=== PATIENT | male | born 1965 | race Caucasian/White ===

== ENCOUNTER 2016-12-13 06:31 | Emergency (ER) | payer OTHER ==
--- NOTE | 2016-12-13 08:53 | DIAGNOSTIC IMAGING REPORT ---
PROCEDURE: XR CHEST 1 VIEW INDICATION: SHORTNESS OF BREATH TECHNIQUE: Portable AP view (0720 hours). COMPARISON: None. FINDINGS: Allowing for suboptimal inspiration, lungs are clear. Heart and mediastinum are normal. Thorax is normal. IMPRESSION: 1. Negative chest.
--- NOTE | 2016-12-13 10:20 | ED CLINICAL REPORT ---
Clinical Report - Physicians/Mid Levels [facility] [address] [place] [address] 12/13/2016 6:33 Patient: PAUL LUEVANO Time Seen: 06:51. Arrived- By private vehicle. Historian- patient. HISTORY OF PRESENT ILLNESS Chief Complaint: CHEST PAIN. At its maximum, severity described as moderate. When seen in the E.D., severity described as moderate. Modifying factors- worsened by movement. Not relieved by anything. This started today and is still present. Onset during rest. It is described as sharp and "pain" and it is described as located in the right chest area. No nausea or vomiting. He has had difficulty breathing (hurts to take a deep breath). He has experienced diaphoresis. Similar symptoms previously: None. Recent medical care: Not recently seen/assessed. REVIEW OF SYSTEMS No fever, chills, cough, pedal edema or calf pain. No fainting episodes, headache, sore throat, blurred vision or abdominal pain. No black stools, difficulty with urination, skin rash, enlarged lymph nodes or joint pain. No bloody stools. All systems otherwise negative, except as recorded above. PAST HISTORY Problems: no known problems. Additional Surgeries: Knee Surgery. Medications: None. Allergies: Doxycycline. SOCIAL HISTORY Never smoker. No alcohol use or drug use. ADDITIONAL NOTES The nursing notes have been reviewed. PHYSICAL EXAM Vital Signs: 12/13/2016 06:36 BP: 129/95. HR: 48. RR: 22. O2 saturation: 100%. Temp: 97.7 F. Have been reviewed. Appearance: Alert. Patient in moderate distress. (PT is crying out, clutching his chest, and hyperventilating.). Distress appears due to anxiety. Eyes: Pupils equal, round and reactive to light. Eyes normal inspection. ENT: Nose normal. Neck: Normal inspection. CVS: Normal heart rate and rhythm. Heart sounds normal. Pulses normal. Respiratory: No respiratory distress. Chest pain reproducible with palpation of the anterior chest wall, with movement of the right arm and with deep breathing. Breath sounds normal. Abdomen: Soft and nontender. Back: Normal external inspection. Skin: Skin warm and dry. Normal skin color. No rash. Normal skin turgor. Extremities: Extremities exhibit normal ROM. No lower extremity edema. Neuro: Oriented X 3. No motor deficit. No sensory deficit. LABS, X-RAYS, AND EKG EKG: EKG time: (0639). No acute process. No acute ischemia. Normal sinus rhythm. Normal P waves. Normal LAYLA. Normal QRS complex. Normal axis. Normal ST and T waves, QT and QTc. Prior EKG unavailable. The study has been interpreted contemporaneously by me. The study has been independently viewed by me. The EKG appears to be a good tracing. Rhythm Strip #1: Time: (0634). Rate= 55. Normal sinus rhythm. Regular rhythm. Narrow QRS complexes. No ectopy. Conduction normal. Normal ST segments and T waves. The study was interpreted by me. Chest X-ray: No acute disease. Normal lung markings present. Normal heart size. Mediastinum normal. Great vessels normal. Soft tissues normal. No infiltrate. No fracture. No bony lesion present. Views: AP (portable). Technique: good. The X-rays were independently viewed by me, interpreted by the radiologist and contemporaneously by me and discussed with the radiologist. Prior films were not available for comparison. Abdominal Sonogram: Multiple gallstones are present. Common duct is normal. Normal liver. Pancreas normal. No free fluid. The study was independently viewed by me, interpreted by the radiologist and discussed with the radiologist. Study included the gallbladder and upper abdomen. Prior studies were not available for comparison. Laboratory Tests: CBC w Diff: (ARISTEO: 12/13/2016 06:40) ( MsgRcvd 12/13/2016 07:15) Final results Test Result Flag Units (Reference) WHITE BLOOD COUNT 7.6 K/uL (4.5-11.5) RED BLOOD COUNT 5.63 M/uL (4.50-5.90) HEMOGLOBIN 16.0 gm/dL (13.5-17.5) HEMATOCRIT 47.9 % (41.0-53.0) MEAN CELL VOLUME 85 fL (80-100) MEAN CORPUSCULAR HGB 28 pg (26-34) MEAN CORPUSCULAR HGB CONC 33 g/dL (31-37) RED CELL DISTRIBUTION WIDTH 13.5 % (11.6-14.8) PLATELET COUNT 274 K/uL (150-400) NEUTROPHIL % 54.3 % (50-75) LYMPH % 28.1 % (25-40) MONO % 9.3 % (3-14) EOSINOPHIL % 7.5 H % (0-4) BASOPHIL % 0.8 % (0-2) PT with INR: (ARISTEO: 12/13/2016 06:40) ( [facility] 12/13/2016 07:22) Final results Test Result Flag Units (Reference) INR 1.0 (0.8-1.2) Low Intensity Therapy: INR 1.5-2.0 PT range 18.5-23.1Mod.Intensity Therapy: INR 2.0-3.0 PT range 23.1-31.5High Intensity Therapy: INR 2.5-3.5 PT range 27.4-35.5High Intensity Therapy 2: INR 3.0-4.0 PT range 31.5-39.3 D-DIMER QUANTITATIVE 0.37 ug/mLFEU (0.27-0.52) The primary value of this quantitative assay relates toits negative predictive value (i.e. exclusion) of pulmonaryembolism/deep vein thrombosis/DIC.Elevated levels of d-dimer may also occur with:, age, cancer, inflammation, liver disease,post-op, infection, hematoma, coronary disease, peripheralarteriopathy, bleeding disorders and thrombolytic treatment.Results should be correlated with other clinical andradiological data.Testing Methodology: Latex Immunoassay Lipase: (ARISTEO: 12/13/2016 06:40) ( [facility] 12/13/2016 07:19) Final results Test Result Flag Units (Reference) LIPASE 225 U/L (73-393) CHEM 13 PANEL: (ARISTEO: 12/13/2016 06:40) ( [facility] 12/13[facility] 07:27) Final results Test Result Flag Units (Reference) GLUCOSE 102 mg/dL (70-110) BUN 22 H mg/dL (7-18) CREATININE 1.0 mg/dL (0.6-1.3) Estimated GFR >60 mL/min Estimated GFR- >60 mL/min Note: Persistent reduction over 3 months in eGFR<60 mL/min/1.73 m2 defines CKD. Patients with eGFR values>=60 mL/min/1.73 m2 may also have CKD if evidence ofpersistent proteinuria. Additional information may be foundat [email or web address].org. SODIUM 145 mmol/L (136-145) POTASSIUM 3.9 mmol/L (3.5-5.1) CHLORIDE 107 mmol/L (98-107) CARBON DIOXIDE 27 mmol/L (21-32) CALCIUM 9.3 mg/dL (8.5-10.1) TOTAL PROTEIN 7.3 g/dL (6.4-8.2) ALBUMIN 3.9 g/dL (3.3-5.0) BILIRUBIN, TOTAL 0.5 mg/dL (0.0-1.0) ALKALINE PHOSPHATASE 96 U/L (46-116) AST (SGOT) 23 U/L (15-37) ALT (SGPT) 38 U/L (12-78) CPK 217 U/L (24-260) MAGNESIUM 2.0 mg/dL (1.8-2.4) TROPONIN I <0.05 ng/mL (0.00-1.5) TROPONIN REFERENCE RANGE:<0.1 NEGATIVE0.1-1.5 INDETERMINANT>1.5 POSITIVE . Pulse Oximetry: 12/13/2016 06:36 O2 saturation: 100%. (FIO2 - room air). Interpretation: normal. PROGRESS AND PROCEDURES Course of Care: Pt was treated with IV fluids, Dilaudid and Toradol, with complete relief of sx. He was worked up thoroughly for his R-sided CP, and found to have a gallbladder full of stones. I did d/w pt that, as he has obviously had these stones for some time, but never had an episode of biliary colic before, that he will need to decide whether to seek surgical removal of his GB or not. I have given him the contact info for the surgery clinic, should he choose to follow up. No other acute issues identified. No emergent condition identified. Patient and spouse counseled in person regarding the patient's stable condition, test results, diagnosis and need for follow-up. Concerns were addressed. Old medical records reviewed. Disposition: Discharged. Condition: stable and improved. CLINICAL IMPRESSION Chest pain. Gallbladder disease with multiple gallstones; acute biliary colic. No gallstone in the bile duct, obstruction, cholecystitis or cholangitis. INSTRUCTIONS (Your ultrasound shows multiple gallstones, but no inflammation of your gall bladder.). Warnings: GENERAL WARNINGS: Return or contact your physician immediately if your condition worsens or changes unexpectedly, if not improving as expected, or if other problems arise. Prescription Medications: Hydrocodone/APAP 5mg / 325mg: take 1-2 orally every 6 hours as needed for pain. Dispense twelve (12). No refill. Zofran (orally disintegrating tablets) 4 mg: take 1-2 orally every 6 hours as needed for nausea. Dispense fifteen (15). No refill. Substitution is permissible. Understanding of the discharge instructions verbalized by patient. Follow-up with: Lucas Wakefield MD, General Surgeon, , [facility], [address] [place] [address] Follow up. Call for the next available appointment. (Electronically signed by Saima Felix MD 12/17/2016 22:13)
--- NOTE | 2016-12-13 10:20 | ED CLINICAL REPORT ---
Clinical Report - Physicians/Mid Levels [facility] [address] [place] [address] 12/13/2016 6:33 Patient: PAUL LUEVANO Time Seen: 06:51. Arrived- By private vehicle. Historian- patient. HISTORY OF PRESENT ILLNESS Chief Complaint: CHEST PAIN. At its maximum, severity described as moderate. When seen in the E.D., severity described as moderate. Modifying factors- worsened by movement. Not relieved by anything. This started today and is still present. Onset during rest. It is described as sharp and "pain" and it is described as located in the right chest area. No nausea or vomiting. He has had difficulty breathing (hurts to take a deep breath). He has experienced diaphoresis. Similar symptoms previously: None. Recent medical care: Not recently seen/assessed. REVIEW OF SYSTEMS No fever, chills, cough, pedal edema or calf pain. No fainting episodes, headache, sore throat, blurred vision or abdominal pain. No black stools, difficulty with urination, skin rash, enlarged lymph nodes or joint pain. No bloody stools. All systems otherwise negative, except as recorded above. PAST HISTORY Problems: no known problems. Additional Surgeries: Knee Surgery. Medications: None. Allergies: Doxycycline. SOCIAL HISTORY Never smoker. No alcohol use or drug use. ADDITIONAL NOTES The nursing notes have been reviewed. PHYSICAL EXAM Vital Signs: 12/13/2016 06:36 BP: 129/95. HR: 48. RR: 22. O2 saturation: 100%. Temp: 97.7 F. Have been reviewed. Appearance: Alert. Patient in moderate distress. (PT is crying out, clutching his chest, and hyperventilating.). Distress appears due to anxiety. Eyes: Pupils equal, round and reactive to light. Eyes normal inspection. ENT: Nose normal. Neck: Normal inspection. CVS: Normal heart rate and rhythm. Heart sounds normal. Pulses normal. Respiratory: No respiratory distress. Chest pain reproducible with palpation of the anterior chest wall, with movement of the right arm and with deep breathing. Breath sounds normal. Abdomen: Soft and nontender. Back: Normal external inspection. Skin: Skin warm and dry. Normal skin color. No rash. Normal skin turgor. Extremities: Extremities exhibit normal ROM. No lower extremity edema. Neuro: Oriented X 3. No motor deficit. No sensory deficit. LABS, X-RAYS, AND EKG EKG: EKG time: (0639). No acute process. No acute ischemia. Normal sinus rhythm. Normal P waves. Normal LAYLA. Normal QRS complex. Normal axis. Normal ST and T waves, QT and QTc. Prior EKG unavailable. The study has been interpreted contemporaneously by me. The study has been independently viewed by me. The EKG appears to be a good tracing. Rhythm Strip #1: Time: (0634). Rate= 55. Normal sinus rhythm. Regular rhythm. Narrow QRS complexes. No ectopy. Conduction normal. Normal ST segments and T waves. The study was interpreted by me. Chest X-ray: No acute disease. Normal lung markings present. Normal heart size. Mediastinum normal. Great vessels normal. Soft tissues normal. No infiltrate. No fracture. No bony lesion present. Views: AP (portable). Technique: good. The X-rays were independently viewed by me, interpreted by the radiologist and contemporaneously by me and discussed with the radiologist. Prior films were not available for comparison. Abdominal Sonogram: Multiple gallstones are present. Common duct is normal. Normal liver. Pancreas normal. No free fluid. The study was independently viewed by me, interpreted by the radiologist and discussed with the radiologist. Study included the gallbladder and upper abdomen. Prior studies were not available for comparison. Laboratory Tests: CBC w Diff: (ARISTEO: 12/13/2016 06:40) ( MsgRcvd 12/13/2016 07:15) Final results Test Result Flag Units (Reference) WHITE BLOOD COUNT 7.6 K/uL (4.5-11.5) RED BLOOD COUNT 5.63 M/uL (4.50-5.90) HEMOGLOBIN 16.0 gm/dL (13.5-17.5) HEMATOCRIT 47.9 % (41.0-53.0) MEAN CELL VOLUME 85 fL (80-100) MEAN CORPUSCULAR HGB 28 pg (26-34) MEAN CORPUSCULAR HGB CONC 33 g/dL (31-37) RED CELL DISTRIBUTION WIDTH 13.5 % (11.6-14.8) PLATELET COUNT 274 K/uL (150-400) NEUTROPHIL % 54.3 % (50-75) LYMPH % 28.1 % (25-40) MONO % 9.3 % (3-14) EOSINOPHIL % 7.5 H % (0-4) BASOPHIL % 0.8 % (0-2) PT with INR: (ARISTEO: 12/13/2016 06:40) ( [facility] 12/13/2016 07:22) Final results Test Result Flag Units (Reference) INR 1.0 (0.8-1.2) Low Intensity Therapy: INR 1.5-2.0 PT range 18.5-23.1Mod.Intensity Therapy: INR 2.0-3.0 PT range 23.1-31.5High Intensity Therapy: INR 2.5-3.5 PT range 27.4-35.5High Intensity Therapy 2: INR 3.0-4.0 PT range 31.5-39.3 D-DIMER QUANTITATIVE 0.37 ug/mLFEU (0.27-0.52) The primary value of this quantitative assay relates toits negative predictive value (i.e. exclusion) of pulmonaryembolism/deep vein thrombosis/DIC.Elevated levels of d-dimer may also occur with:, age, cancer, inflammation, liver disease,post-op, infection, hematoma, coronary disease, peripheralarteriopathy, bleeding disorders and thrombolytic treatment.Results should be correlated with other clinical andradiological data.Testing Methodology: Latex Immunoassay Lipase: (ARISTEO: 12/13/2016 06:40) ( [facility] 12/13/2016 07:19) Final results Test Result Flag Units (Reference) LIPASE 225 U/L (73-393) CHEM 13 PANEL: (ARISTEO: 12/13/2016 06:40) ( [facility]) Final results Test Result Flag Units (Reference) GLUCOSE 102 mg/dL (70-110) BUN 22 H mg/dL (7-18) CREATININE 1.0 mg/dL (0.6-1.3) Estimated GFR >60 mL/min Estimated GFR- >60 mL/min Note: Persistent reduction over 3 months in eGFR<60 mL/min/1.73 m2 defines CKD. Patients with eGFR values>=60 mL/min/1.73 m2 may also have CKD if evidence ofpersistent proteinuria. Additional information may be foundat [email or web address]. SODIUM 145 mmol/L (136-145) POTASSIUM 3.9 mmol/L (3.5-5.1) CHLORIDE 107 mmol/L (98-107) CARBON DIOXIDE 27 mmol/L (21-32) CALCIUM 9.3 mg/dL (8.5-10.1) TOTAL PROTEIN 7.3 g/dL (6.4-8.2) ALBUMIN 3.9 g/dL (3.3-5.0) BILIRUBIN, TOTAL 0.5 mg/dL (0.0-1.0) ALKALINE PHOSPHATASE 96 U/L (46-116) AST (SGOT) 23 U/L (15-37) ALT (SGPT) 38 U/L (12-78) CPK 217 U/L (24-260) MAGNESIUM 2.0 mg/dL (1.8-2.4) TROPONIN I <0.05 ng/mL (0.00-1.5) TROPONIN REFERENCE RANGE:<0.1 NEGATIVE0.1-1.5 INDETERMINANT>1.5 POSITIVE . Pulse Oximetry: 12/13/2016 06:36 O2 saturation: 100%. (FIO2 - room air). Interpretation: normal. PROGRESS AND PROCEDURES Course of Care: Pt was treated with IV fluids, Dilaudid and Toradol, with complete relief of sx. He was worked up thoroughly for his R-sided CP, and found to have a gallbladder full of stones. I did d/w pt that, as he has obviously had these stones for some time, but never had an episode of biliary colic before, that he will need to decide whether to seek surgical removal of his GB or not. I have given him the contact info for the surgery clinic, should he choose to follow up. No other acute issues identified. No emergent condition identified. Patient and spouse counseled in person regarding the patient's stable condition, test results, diagnosis and need for follow-up. Concerns were addressed. Old medical records reviewed. Disposition: Discharged. Condition: stable and improved. CLINICAL IMPRESSION Chest pain. Gallbladder disease with multiple gallstones; acute biliary colic. No gallstone in the bile duct, obstruction, cholecystitis or cholangitis. INSTRUCTIONS (Your ultrasound shows multiple gallstones, but no inflammation of your gall bladder.). Warnings: GENERAL WARNINGS: Return or contact your physician immediately if your condition worsens or changes unexpectedly, if not improving as expected, or if other problems arise. Prescription Medications: Hydrocodone/APAP 5mg / 325mg: take 1-2 orally every 6 hours as needed for pain. Dispense twelve (12). No refill. Zofran (orally disintegrating tablets) 4 mg: take 1-2 orally every 6 hours as needed for nausea. Dispense fifteen (15). No refill. Substitution is permissible. Understanding of the discharge instructions verbalized by patient. Follow-up with: Lucas Wakefield MD, General Surgeon, , [facility], [address] [place] [address] Follow up. Call for the next available appointment. (Electronically signed by Saima Felix MD 12/17/2016 22:13)
--- NOTE | 2016-12-13 10:21 | ED ORDER SUMMARY ---
..... Patient: PAUL LUEVANO OrderSheet [facility] VisitID: [id number] [address] [place] [address] 51y, M Registration Date/Time: 12/13/2016 ORDER SHEET Weight: 92.9 kg (stated) Allergies: Doxycycline GENERAL ORDERS: Chest 1V Urgent (07:03 12/13/2016 Kain MELÉNDEZ) (Ack 7:19 CHategekimana) (7:25 LMuller) Swimming Coach Or Instructor (Continuous) (07:12/13/2016 Kain MELÉNDEZ) (7:27 LWjocy R.N.) Cardiac Panel Stat (07:12/13/2016 Kain MELÉNDEZ) (7:05 Krista R.N.) PT with INR Urgent (07:12/13/2016 Kain MELÉNDEZ) (7:05 Krista R.N.) D-Dimer Urgent (07:12/13/2016 Kain MELÉNDEZ) (7:05 Krista R.N.) Lipase Urgent (07:12/13/2016 Kain MELÉNDEZ) (7:05 Krista R.N.) Oxygen (2 L/min) (NC) (07:05 12/13/2016 Kain MELÉNDEZ) (7:27 Keron R.N.) Pulse oximeter (07:12/13/2016 Kain MELÉNDEZ) (7:05 Krista R.N.) EKG - ER Stat (07:12/13/2016 Kain MELÉNDEZ) (7:05 Krista R.N.) US Abdomen Limited (Yes) Urgent (07:32 12/13/2016 Kain MELÉNDEZ) (Ack 7:40 LMuller) (9:38 LMuller) MEDICATION ORDERS: IV FLUIDS: IV NS : initial bolus 1000 mL (1000 mL/hr), then none - (NOW) (07:04 12/13/2016 Kain MELÉNDEZ) (7:26 LWhalgonzales R.N.) Dilaudid IV 2 mg (HIGH ALERT MEDICATION, NOW) (07:04 12/13/2016 Kain MELÉNDEZ) (7:27 LWjocy R.N.) Toradol IV 30 mg (NOW) (07:12/13/2016 Kain MELÉNDEZ) (7:27 Keron Still) ORDER SHEET NOTES: [Electronically signed by Jennifer Canela R.N. (17:05 12/13/2016)] [Electronically signed by Saima Felix MD (22:13 12/17/2016)] [Electronically locked/signed by Jennifer Canela R.N. (17:05 12/13/2016)]
--- NOTE | 2016-12-13 10:21 | ED NURSING NOTES ---
Clinical Report - Nurses [facility] [address] [place] [address] 12/13/2016 6:33 Patient: PAUL LUEVANO TRIAGE Triage time 0636. Acuity: LEVEL 2. Chief Complaint: CHEST PAIN and DISCOMFORT and BACK PAIN and SHORTNESS OF BREATH. --06:39 Xavi Wagner R.N. 06:36 12/13/16. BP: 129/95. HR: 48. RR: 22. O2 saturation: 100%. Temp: 97.7 F. Pain level now 06/17. --06:39 Xavi Wagner R.N. Weight: 92.9 kg stated. Height/Length: 70 inches Per Patient. BMI: 29.4. --06:38 Xavi Wagner R.N. Medications None. --06:37 Xavi Wagner R.N. Allergies Doxycycline. --06:37 Xavi Wagner R.N. History Arrived by private vehicle. Historian: patient. Accompanied by spouse. Onset. (about 2 hours ago). 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 FALL RISK ASSESSMENT: Fall risk assessment completed. No fall risk identified. NUTRITIONAL RISK ASSESSMENT: The nutritional risk assessment revealed no deficiencies. FUNCTIONAL ASSESSMENT: Functional assessment: no impairments noted. LEARNING NEEDS ASSESSMENT: The learning needs assessment revealed no barriers. SKIN INTEGRITY ASSESSMENT: Skin integrity risk assessment completed. No skin integrity risk identified. --06:39 Xavi Wagner R.N. ( pt states he thought he pulled a muscle in his chest but it is on the right side under his nipple area radiating to his back. pt states as the pain is worsening he is having difficulty breathing. RA sat is 100%). --06:40 Xavi Wagner R.N. ADDITIONAL SURGERIES: Knee Surgery. --06:38 Xavi Wagner R.N. Interventions ID band on patient. --06:39 Xavi Wagner R.N. PHYSICAL ASSESSMENT GENERAL / NEURO / PSYCH: Alert. Oriented X 4. Appears in pain and in distress. HEENT: Mucous membranes are pink. RESPIRATORY: Respirations not labored. Breath sounds within normal limits. CVS: Heart sounds within normal limits. Pulses within normal limits. Capillary refill less than 2 seconds. GI / : Abdomen soft and nontender. EXTREMITIES: No lower extremity edema. SKIN: Skin is warm and dry. Normal skin turgor. Skin is non-tender. --06:41 Xavi Wagner R.N. Ambulatory to room. Patient gowned. --06:41 Xavi Wagner R.N. NURSING PROGRESS NOTES Patient gowned. Head of bed elevated. Reassurance given. Patient identifiers checked. Call light placed in reach. Bed placed in lowest position. Brakes of bed on. --06:41 Xavi Wagner R.N. 06:41 12/13/2016 Site #1 started via IV in the left antecubital space with an 18g angiocath; one attempt. Blood drawn: rainbow set. Labeled in the presence of the patient and sent to the lab. Saline lock flushed with saline. --06:41 Xavi Wagner R.N. EKG time: (0639). EKG was ordered, performed by a tech and shown to the ED physician. --06:49 Benny Dejesus ER Concert Manager 07:12 12/13/16. ( Report received on patient from night RN.). --09:13 Jennifer Canela R.N. 07:16 12/13/2016 Started bag #1 1000 mL IV Fluids IV NS (Saline); at 1000 mL/hr over 1 hour(s) via site #1 via dial-a-flow. Allergies verified and confirmed 5 rights. IV patency established. IV site checked: no pain, redness, or swelling. IV flushed thoroughly pre- and post-medication administration. --07:26 Jennifer Canela R.N. 07:22 12/13/2016 Dilaudid (HYDROmorphone HCl PF) IVP 2 mg given over 2 minute(s) via site #1. 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 IV patency established. IV site checked: no pain, redness, or swelling. IV flushed thoroughly pre- and post-medication administration. --07:27 Jennifer Canela R.N. 07:27 12/13/2016 Toradol IVP 30 mg given over 2 minute(s) via site #1. Allergies verified and confirmed 5 rights. IV patency established. IV site checked: no pain, redness, or swelling. IV flushed thoroughly pre- and post-medication administration. --07:27 Jennifer Canela R.N. 08:55 12/13/16. BP: 106/68. HR: 51. RR: 10. O2 saturation: 98% on nasal cannula at 2 liters/minute. 08:40 12/13/16. BP: 103/69. HR: 52. RR: 10. O2 saturation: 97% on nasal cannula at 2 liters/minute. Additional comments: pt resting soundly . 08:25 12/13/16. BP: 108/69. HR: 51. RR: 10. O2 saturation: 98% on nasal cannula at 2 liters/minute. 08:10 12/13/16. BP: 116/75. HR: 50. RR: 11. O2 saturation: 97% on nasal cannula at 2 liters/minute. 07:55 12/13/16. BP: 117/75. HR: 54. RR: 15. O2 saturation: 99%. Additional comments: patient resting soundly . 07:40 12/13/16. BP: 119/79. HR: 52. RR: 14. O2 saturation: 100% on nasal cannula at 2 liters/minute. 07:30 12/13/16. BP: 109/89. HR: 55. RR: 18. O2 saturation: 100% on nasal cannula at 2 liters/minute. 07:15 12/13/16. BP: 140/103. HR: 50. RR: 19. O2 saturation: 100% on nasal cannula at 2 liters/minute. Temp: 98.6 F. Pain level now: 06/17. --09:22 Jennifer Canela R.N. 09:23 12/13/2016 IV Fluids IV NS Discontinued: bag #1 infused. Total amount infused: 1000 mL. IV patency established. IV site checked: no pain, redness, or swelling. IV flushed thoroughly. --09:23 Jennifer Canela R.N. ( Currently waiting for US.). --09:23 Jennifer Canela R.N. ( US IN ROOM WITH PATIENT). --09:41 Vijaya Dorsey 09:50 12/13/16. BP: 121/71. HR: 59. RR: 14. O2 saturation: 99%. Temp: 98.7 F. Pain level now: 0/10. 09:25 12/13/16. BP: 99/74. HR: 58. RR: 17. O2 saturation: 100% on nasal cannula at 2 liters/minute. --10:50 Jennifer Canela R.N. DISPOSITION / DISCHARGE Departure time: 10:53 Dec 13 2016. Condition at departure: improved. No learning barriers present. Discharge instructions provided and reviewed with the patient and spouse. Reviewed warnings. Reviewed medication(s). Treatments reviewed. Reviewed referrals. Patient verbalized understanding. Written instructions provided in Greenlandic. The patient was discharged home and accompanied by spouse. He left the Emergency Department ambulatory and via private vehicle. Spouse driving. --10:53 Jennifer Canela R.N. 10:50 12/13/16. BP: 103/60. HR: 58. RR: 14. O2 saturation: 99%. Temp: 98.4 F. Pain level now 0/10. --10:53 Jennifer Canela R.N. Locked/Released at 12/13/2016 17:05 by Jennifer Canela R.N.
--- NOTE | 2016-12-13 10:21 | ED ORDER SUMMARY ---
..... Patient: PAUL LUEVANO OrderSheet [facility] VisitID: [id number] [address] [place] [address] 51y, M Registration Date/Time: 12/13/2016 ORDER SHEET Weight: 92.9 kg (stated) Allergies: Doxycycline GENERAL ORDERS: Chest 1V Urgent (07:03 12/13/2016 Kain MELÉNDEZ) (Ack 7:19 CHategekimana) (7:25 LMuller) Cloth Seconds Sorter (Continuous) (07:12/13/2016 Kain MELÉNDEZ) (7:27 LWjocy R.N.) Cardiac Panel Stat (07:12/13/2016 Kain MELÉNDEZ) (7:05 Krista R.N.) PT with INR Urgent (07:12/13/2016 Kain MELÉNDEZ) (7:05 Krista R.N.) D-Dimer Urgent (07:12/13/2016 Kain MELÉNDEZ) (7:05 Krista R.N.) Lipase Urgent (07:12/13/2016 Kain MELÉNDEZ) (7:05 Krista R.N.) Oxygen (2 L/min) (NC) (07:05 12/13/2016 Kain MELÉNDEZ) (7:27 Keron R.N.) Pulse oximeter (07:12/13/2016 Kain MELÉNDEZ) (7:05 Krista R.N.) EKG - ER Stat (07:12/13/2016 Kain MELÉNDEZ) (7:05 Krista R.N.) US Abdomen Limited (Yes) Urgent (07:32 12/13/2016 Kain MELÉNDEZ) (Ack 7:40 LMuller) (9:38 LMuller) MEDICATION ORDERS: IV FLUIDS: IV NS : initial bolus 1000 mL (1000 mL/hr), then none - (NOW) (07:04 12/13/2016 Kain MELÉNDEZ) (7:26 LWhalgonzales R.N.) Dilaudid IV 2 mg (HIGH ALERT MEDICATION, NOW) (07:04 12/13/2016 Kain MELÉNDEZ) (7:27 LWjocy R.N.) Toradol IV 30 mg (NOW) (07:12/13/2016 Kain MELÉNDEZ) (7:27 Keron Still) ORDER SHEET NOTES: [Electronically signed by Jennifer Canela R.N. (17:05 12/13/2016)] [Electronically signed by Saima Felix MD (22:13 12/17/2016)] [Electronically locked/signed by Jennfier Canela R.N. (17:05 12/13/2016)]
--- NOTE | 2016-12-13 11:43 | DIAGNOSTIC IMAGING REPORT ---
PROCEDURE: US ABDOMEN ULTRASOUND-LIMITED INDICATION: Right abdominal pain. TECHNIQUE: Underwood scale and color Doppler sonographic images of the abdomen were obtained. COMPARISON: None. FINDINGS: There are multiple shadowing gallstones (largest 1.8 cm). No evidence of gallbladder wall thickening (2 mm). Common duct is normal (4 mm). Moderate increased echogenicity of the liver. There is a 1.5 cm cyst in the ventral right lobe of the liver. Portions of the pancreas, aorta, and right kidney are seen, and are normal. IMPRESSION: 1. Cholelithiasis (multiple shadowing gallstones). 2. Fatty infiltration of the liver.
--- NOTE | 2016-12-17 22:13 | ED DISCHARGE INSTRUCTIONS ---
Patient: PAUL LUEVANO General Instructions [facility] VisitID: [id number] [place] [id number] 51y, M Registration Date/Time: 12/13/2016 Chest pain. Gallbladder disease with multiple gallstones; acute biliary colic. No gallstone in the bile duct, obstruction, cholecystitis or cholangitis. INSTRUCTIONS (Your ultrasound shows multiple gallstones, but no inflammation of your gall bladder.). Warnings: GENERAL WARNINGS: Return or contact your physician immediately if your condition worsens or changes unexpectedly, if not improving as expected, or if other problems arise. Prescription Medications: Hydrocodone/APAP 5mg / 325mg: take 1-2 orally every 6 hours as needed for pain. Dispense twelve (12). No refill. Zofran (orally disintegrating tablets) 4 mg: take 1-2 orally every 6 hours as needed for nausea. Dispense fifteen (15). No refill. Substitution is permissible. Understanding of the discharge instructions verbalized by patient. Follow-up with: Lucas Wakefield MD, General Surgeon, , [facility], [address] [place] [address] Follow up. Call for the next available appointment. ADDITIONAL INFORMATION GallstonesWith Biliary Colic [Confirmed Dx] The abdominal pain that you have today is due to spasm of the gallbladder. The gallbladder is a small sac under the liver which stores and releases bile. Bile is a fluid that aids in the digestion of fat. A gallstone may form inside the gallbladder and block the flow of bile fluid. This causes mild to severe crampy pain in the mid or right upper abdomen with nausea and vomiting. Home Care: Rest in bed and follow a clear liquid diet until feeling better. If pain or nausea medicine was given to help with your symptoms, take these as directed. Fat in your diet makes the gallbladder contract and may cause increased pain. Therefore, avoid fat in your diet over the next two days and follow a low-fat diet after that. If you are overweight, a low-fat diet will also help you lose weight. Follow Up with your doctor. There is a 50% chance that you will have another episode of pain from your gallstones during the next 2 years. Removal of the gallbladder is the treatment of choice to prevent this. Schedule an appointment with your own doctor during the next week to discuss the treatment options. Get Prompt Medical Attention if any of the following occur: Pain gets worse or moves to the right lower abdomen Repeated vomiting Swelling of the abdomen Pain lasts over 6 hours Fever of 100.4F (38C) or higher, or as directed by your healthcare provider Weakness, dizziness or fainting Dark urine or light colored stools Yellow color of the skin or eyes Chest, arm, back, neck or jaw pain You have been given the following additional information: Biliary Colic With Gallstone (Confirmed) (Electronically signed by Saima Felix MD 12/17/2016 22:13)
--- NOTE | 2016-12-17 22:13 | ED MED RECONCILIATION SUMMARY ---
Patient: PAUL LUEVANO Medication Reconciliation Report [facility] VisitID: [id number] [address] [place] [address] 51y, M Registration Date/Time: 12/13/2016 Weight: 92.9 kg Height/Length: 70 in. BMI: 29.4 ALLERGIES: Doxycycline The patient's Home Medications are listed below: NONE. The source(s) of the original Home Medication information: Not obtained. The following Medications were given to the patient in the Emergency Department: IV NS IV Fluids bolus 0, then 1000 mL/hr, administered: 12/13/2016 7:16:00 AM Dilaudid [IVP] IVP 2 mg, administered: 12/13/2016 7:22:00 AM Toradol [IVP] IVP 30 mg, administered: 12/13/2016 7:27:00 AM The following Medications were prescribed to the patient: Hydrocodone/APAP 5mg / 325mg: take 1-2 orally every 6 hours as needed for pain. Dispense twelve (12). No refill. -- Saima Felix MD Zofran (orally disintegrating tablets) 4 mg: take 1-2 orally every 6 hours as needed for nausea. Dispense fifteen (15). No refill. Substitution is permissible. -- Saima Felix MD
--- NOTE | 2016-12-17 22:13 | ED MAR SUMMARY ---
..... Medication Administration Record [facility] [address] [place] [address] Patient: PAUL LUEVANO Visit ID: [id number] 51y, M Weight: 92.9 kg Height/Length: 70 in BMI: 29.4 ALLERGIES: Doxycycline Start 07:16 12/13/2016 Jennifer Canela R.N., Stop 09:23 12/13/2016 Jennifer Canela R.N. Medication Administered: IV NS (SALINE), Dose: IV Fluids over 1 hour(s), Rate: 1000 mL/hr, Dispensed: 1000 mL bag, Site: #1 left AC. Medication Ordered: IV NS : initial bolus 1000 mL (1000 mL/hr), then none - (NOW). Given 07:22 12/13/2016 Jennifer Canela R.N. Medication Administered: DILAUDID [IVP] (HYDROMORPHONE HCL PF), Dose: 2 mg IVP over 2 minute(s), Site: #1 left AC. Medication Ordered: Dilaudid IV 2 mg (HIGH ALERT MEDICATION, NOW). Given 07:27 12/13/2016 Jennifer Canela R.N. Medication Administered: TORADOL [IVP], Dose: 30 mg IVP over 2 minute(s), Site: #1 left AC. Medication Ordered: Toradol IV 30 mg (NOW).
--- NOTE | 2016-12-17 22:13 | ED MED RECONCILIATION SUMMARY ---
Patient: PAUL LUEVANO Medication Reconciliation Report [facility] VisitID: [id number] [address] [place] [address] 51y, M Registration Date/Time: 12/13/2016 Weight: 92.9 kg Height/Length: 70 in. BMI: 29.4 ALLERGIES: Doxycycline The patient's Home Medications are listed below: NONE. The source(s) of the original Home Medication information: Not obtained. The following Medications were given to the patient in the Emergency Department: IV NS IV Fluids bolus 0, then 1000 mL/hr, administered: 12/13/2016 7:16:00 AM Dilaudid [IVP] IVP 2 mg, administered: 12/13/2016 7:22:00 AM Toradol [IVP] IVP 30 mg, administered: 12/13/2016 7:27:00 AM The following Medications were prescribed to the patient: Hydrocodone/APAP 5mg / 325mg: take 1-2 orally every 6 hours as needed for pain. Dispense twelve (12). No refill. -- Saima Felix MD Zofran (orally disintegrating tablets) 4 mg: take 1-2 orally every 6 hours as needed for nausea. Dispense fifteen (15). No refill. Substitution is permissible. -- Saima Felix MD
--- NOTE | 2016-12-17 22:13 | ED DISCHARGE INSTRUCTIONS ---
Patient: PAUL LUEVANO General Instructions [facility] VisitID: [id number] [place], [place] [id number] 51y, M Registration Date/Time: 12/13/2016 Chest pain. Gallbladder disease with multiple gallstones; acute biliary colic. No gallstone in the bile duct, obstruction, cholecystitis or cholangitis. INSTRUCTIONS (Your ultrasound shows multiple gallstones, but no inflammation of your gall bladder.). Warnings: GENERAL WARNINGS: Return or contact your physician immediately if your condition worsens or changes unexpectedly, if not improving as expected, or if other problems arise. Prescription Medications: Hydrocodone/APAP 5mg / 325mg: take 1-2 orally every 6 hours as needed for pain. Dispense twelve (12). No refill. Zofran (orally disintegrating tablets) 4 mg: take 1-2 orally every 6 hours as needed for nausea. Dispense fifteen (15). No refill. Substitution is permissible. Understanding of the discharge instructions verbalized by patient. Follow-up with: Lucas Wakefield MD, General Surgeon, , [facility], [address] [place] [address] Follow up. Call for the next available appointment. ADDITIONAL INFORMATION GallstonesWith Biliary Colic [Confirmed Dx] The abdominal pain that you have today is due to spasm of the gallbladder. The gallbladder is a small sac under the liver which stores and releases bile. Bile is a fluid that aids in the digestion of fat. A gallstone may form inside the gallbladder and block the flow of bile fluid. This causes mild to severe crampy pain in the mid or right upper abdomen with nausea and vomiting. Home Care: Rest in bed and follow a clear liquid diet until feeling better. If pain or nausea medicine was given to help with your symptoms, take these as directed. Fat in your diet makes the gallbladder contract and may cause increased pain. Therefore, avoid fat in your diet over the next two days and follow a low-fat diet after that. If you are overweight, a low-fat diet will also help you lose weight. Follow Up with your doctor. There is a 50% chance that you will have another episode of pain from your gallstones during the next 2 years. Removal of the gallbladder is the treatment of choice to prevent this. Schedule an appointment with your own doctor during the next week to discuss the treatment options. Get Prompt Medical Attention if any of the following occur: Pain gets worse or moves to the right lower abdomen Repeated vomiting Swelling of the abdomen Pain lasts over 6 hours Fever of 100.4F (38C) or higher, or as directed by your healthcare provider Weakness, dizziness or fainting Dark urine or light colored stools Yellow color of the skin or eyes Chest, arm, back, neck or jaw pain You have been given the following additional information: Biliary Colic With Gallstone (Confirmed) (Electronically signed by Saima Felix MD 12/17/2016 22:13)
--- NOTE | 2016-12-17 22:13 | ED MAR SUMMARY ---
..... Medication Administration Record [facility] [address] [place] [address] Patient: PAUL LUEVANO Visit ID: [id number] 51y, M Weight: 92.9 kg Height/Length: 70 in BMI: 29.4 ALLERGIES: Doxycycline Start 07:16 12/13/2016 Jennifer Canela R.N., Stop 09:23 12/13/2016 Jennifer Canela R.N. Medication Administered: IV NS (SALINE), Dose: IV Fluids over 1 hour(s), Rate: 1000 mL/hr, Dispensed: 1000 mL bag, Site: #1 left AC. Medication Ordered: IV NS : initial bolus 1000 mL (1000 mL/hr), then none - (NOW). Given 07:22 12/13/2016 Jennifer Canela R.N. Medication Administered: DILAUDID [IVP] (HYDROMORPHONE HCL PF), Dose: 2 mg IVP over 2 minute(s), Site: #1 left AC. Medication Ordered: Dilaudid IV 2 mg (HIGH ALERT MEDICATION, NOW). Given 07:27 12/13/2016 Jennifer Canela R.N. Medication Administered: TORADOL [IVP], Dose: 30 mg IVP over 2 minute(s), Site: #1 left AC. Medication Ordered: Toradol IV 30 mg (NOW).
== END 2016-12-13 10:45 | disposition home or self-care (01) ==
LOC: ED SRH 06:31
DX: K80.70 Calculus of gallbladder and bile duct without cholecystitis without obstruction (principal); R07.9 Chest pain, unspecified; Z88.1 Allergy status to other antibiotic agents
CPT/HCPCS: 90100; 90616; 91556; 92235; 92610; 92720; 94060; 95059

== ENCOUNTER 2016-12-15 18:50 | Observation (INO) | payer OTHER ==
[~2016-12-15] VITALS: Ht 177.8 cm; Wt 93.6 kg
--- NOTE | 2016-12-15 20:39 | ED NURSING NOTES ---
Clinical Report - Nurses [facility] [address] [place] [address] 12/15/2016 18:51 Patient: PAUL LUEVANO TRIAGE Triage time 19:10. Acuity: LEVEL 3. Chief Complaint: ABDOMINAL PAIN. 19:10 12/15/16. 19:12/15/16. Alert. No acute distress. --19:12 Alin Joseph R.N. 19:09 12/15/16. BP: 143/92. HR: 66. RR: 20. O2 saturation: 100% on room air. Temp: 98.2 F (oral). Pain level now: 08/17. --19:12 Alin Joseph R.N. Weight: 92.9 kg stated. Height/Length: 70 inches Per Patient. BMI: 29.4. --19:10 Alin Joseph R.N. Medications TraMADol HCl Oral, as needed, started 12/15/16. --19:12 Alin Joseph R.N. Medication/allergy information source: the patient. --19:12 Alin Joseph R.N. Allergies Doxycycline. --19:12 Alin Joseph R.N. History Arrived by private vehicle, and accompanied by family. Primary physician ([facility]). 19:10 12/15/16. This started today. He has had nausea. Treatment [employer]: (1730-Tramadol). PAST MEDICAL HX: Immunizations not up to date. SOCIAL HX: Never smoker. No alcohol use or drug use. No recent travel. No infectious disease exposure. No known contact with a sick individual. ABUSE ASSESSMENT: No report of abuse. FALL RISK ASSESSMENT: Fall risk assessment completed. No fall risk identified. NUTRITIONAL RISK ASSESSMENT: The nutritional risk assessment revealed no deficiencies. FUNCTIONAL ASSESSMENT: Functional assessment: no impairments noted. LEARNING NEEDS ASSESSMENT: The learning needs assessment revealed no barriers. SKIN INTEGRITY ASSESSMENT: Skin integrity risk assessment completed. No skin integrity risk identified. --19:12 Alin Joseph R.N. PROBLEMS: Gallbladder Disease. Chest Pain. --19:12 Alin Joseph R.N. ADDITIONAL SURGERIES: Knee Surgery. --19:12 Alin Joseph R.N. Assessment 19:12/15/16. --19:12 Alin Joseph R.N. Interventions 19:10 12/15/16. 19:12/15/16. ID and allergy band on patient. To treatment room. --19:12 Alin Joseph R.N. PHYSICAL ASSESSMENT 19:12/15/16. GENERAL / NEURO / PSYCH: Alert. Oriented X 4. Appears in pain. CVS: Capillary refill less than 2 seconds. SKIN: Skin is warm and dry. --19:12 Alin Joseph R.N. NURSING PROGRESS NOTES 19:12/15/16. The plan of care for this patient has been created. Patient gowned. Head of bed elevated. Reassurance given. Two patient identifiers checked. Call light placed in reach. Side rails up x 2. Brakes of bed on. Brakes of chair on. --19:12 Alin Joseph R.N. 19:12/15/16. Patient ready for evaluation- chart flagged and notification provided. --19:13 Alin Joseph R.N. 19:22 12/15/2016 Site #1 started via IV in the right antecubital space with an 20g angiocath, with aseptic technique and good blood return; one attempt. Blood drawn: rainbow set. Labeled in the presence of the patient. Saline lock flushed with 10 mL saline. --19:22 Alin Joseph R.N. 19:23 12/15/2016 Started bag #1 1000 mL IV Fluids IV NS (Saline); at 1000 mL/hr over 1 hour(s) via site #1. Allergies verified and confirmed 5 rights. IV patency established. IV site checked: no pain, redness, or swelling. IV flushed thoroughly pre- and post-medication administration. Completed per protocol. --19:23 Alin Joseph R.N. 19:24 12/15/2016 Zofran (Ondansetron HCl) IVP 4 mg given over 2 minute(s) via site #1. Allergies verified and confirmed 5 rights. IV patency established. IV site checked: no pain, redness, or swelling. IV flushed thoroughly pre- and post-medication administration. IVP given by RN. --19:24 Alin Joseph R.N. 19:26 12/15/2016 Demerol (Meperidine HCl) IVP 50 mg given over 2 minute(s) via site #1. Allergies verified and confirmed 5 rights. IV patency established. IV site checked: no pain, redness, or swelling. IV flushed thoroughly pre- and post-medication administration. IVP given by RN. --19:26 Alin Joseph R.N. 19:26 12/15/16. BP: 149/85. HR: 56. RR: 20. O2 saturation: 100% on room air. --19:26 Alin Joseph R.N. 19:26 12/15/16. --19:26 Alin Joseph R.N. Patient and family informed about reason for wait and about plan of care. --19:27 Alin Joseph R.N. 19:27 12/15/16. Patient waiting for lab results. --19:27 Alin Joseph R.N. 19:29. Care transferred and report received. --19:29 Shaq Majano R.N. 19:51 12/15/2016 Demerol (Meperidine HCl) IVP 50 mg given over 2 minute(s) via site #1. Allergies verified and confirmed 5 rights. IV patency established. IV site checked: no pain, redness, or swelling. IV flushed thoroughly pre- and post-medication administration. --19:51 Shaq Majano R.N. 20:40 12/15/2016 IV Fluids IV NS Discontinued: bag #1 infused. Total amount infused: 1000 mL. IV patency established. IV site checked: no pain, redness, or swelling. IV flushed thoroughly. --20:56 Shaq Majano R.N. <<STRICKEN ENTRY-- 20:50 12/15/2016 Started bag #1 1000 mL IV Fluids IV LACTATED RINGERS; at 125 mL/hr over 8 hour(s) via site #1 via IV pump. IV patency established. IV site checked: no pain, redness, or swelling. IV flushed thoroughly pre- and post-medication administration. --20:56 Shaq Majano R.N. --END STRIKE>> Correction. --21:26 Shaq Majano R.N. 20:50 12/15/2016 Started bag #2 1000 IV Fluids IV LACTATED RINGERS; at 125 mL/hr over 8 hour(s) via site #1 via IV pump. IV patency established. IV site checked: no pain, redness, or swelling. IV flushed thoroughly pre- and post-medication administration. --21:26 Shaq Majano R.N. 20:51 12/15/2016 Metoclopramide IVP 10 mg given over 2 minute(s) via site #1. Allergies verified and confirmed 5 rights. IV patency established. IV site checked: no pain, redness, or swelling. IV flushed thoroughly pre- and post-medication administration. --20:57 Shaq Majano R.N. 20:52 12/15/2016 Started 20 mg of Famotidine IVPB in bag #1 50 mL; at 200 mL/hr over 15 minute(s) via site #1; Allergies verified and confirmed 5 rights. IV patency established. IV site checked: no pain, redness, or swelling. IV flushed thoroughly pre- and post-medication administration. --20:57 Shaq Majano R.N. 20:59 12/15/2016 Started 1 gm of CEFOTETAN IVPB in bag #1 50 mL; at 180 mL/hr over 20 minute(s) via site #1 via IV pump. Allergies verified and confirmed 5 rights. IV patency established. IV site checked: no pain, redness, or swelling. IV flushed thoroughly pre- and post-medication administration. --20:59 Shaq Majano R.N. 21:08 12/15/2016 Famotidine IVPB Discontinued: bag #1 infused. Total amount infused: 50 mL. IV patency established. IV site checked: no pain, redness, or swelling. IV flushed thoroughly. --21:25 Shaq Majano R.N. 21:20 12/15/2016 CEFOTETAN IVPB Discontinued: bag #1 infused. Total amount infused: 50 mL. IV patency established. IV site checked: no pain, redness, or swelling. IV flushed thoroughly. --21:25 Shaq Majano R.N. 21:26 12/15/2016 IV Fluids IV LACTATED RINGERS Continued: upon admission at the rate of 125 mL/hr. 900 mL remaining bag #2. IV patency established. IV site checked: no pain, redness, or swelling. IV flushed thoroughly. --21:26 Shaq Majano R.N. DISPOSITION / DISCHARGE Condition at departure: stable. No learning barriers present. Admitted to Acute Care. Transported via stretcher by [facility] with IV. Patient's personal items include, Other belongings; items were placed in belongings bag and given to the spouse. He did not have glasses, contacts, dentures or a hearing aid. FALL RISK ASSESSMENT: Fall risk assessment completed. No fall risk identified. --21:15 Shaq Majano R.N. 21:15. Report was given. (Bert BRYANTcaregivers non medical). --21:15 Shaq Majano R.N. 21:27 12/15/16. BP: 129/79. HR: 60. RR: 16. O2 saturation: 97% on room air. Pain level now: 02/15. --21:28 Shaq Majano R.N. Departure time: 21:37. --21:37 Shaq Majano R.N. Locked/Released at 12/15/2016 21:49 by Shaq Majano R.N.
--- NOTE | 2016-12-15 20:39 | ED ORDER SUMMARY ---
..... Patient: PAUL LUEVANO OrderSheet [facility] VisitID: [id number] [place] [address] 51y, M Registration Date/Time: 12/15/2016 ORDER SHEET Weight: 92.9 kg (stated) Allergies: Doxycycline GENERAL ORDERS: CBC w Diff Urgent (19:05 12/15/2016 Estefanía Dougherty) (Ack 19:09 MAouse ER Tech1) (19:22 JBoardley R.N.) CMP Urgent (19:05 12/15/2016 Estefanía Dougherty) (Ack 19:09 NHouse ER Tech1) (19:22 JBoardley R.N.) Amylase Urgent (19:05 12/15/2016 Estefanía Dougherty) (Ack 19:09 NHouse ER Tech1) (19:22 JBoardley R.N.) Lipase Urgent (19:12/15/2016 Estefanía Dougherty) (Ack 19:09 NHouse ER Tech1) (19:22 JBoardley R.N.) MEDICATION ORDERS: IV FLUIDS: IV NS : initial bolus none -, then 1000 mL/hr for X1 (NOW) (19:04 12/15/2016 Estefanía Dougherty) (Ack 19:13 JBoardley R.N.) (19:23 JBoardley R.N.) Demerol IV 50 mg (HIGH ALERT MEDICATION, NOW) (19:23 12/15/2016 Estefanía Dougherty) (Ack 19:24 JBoardley R.N.) (19:26 JBoardley R.N.) Zofran IV 4 mg (NOW) (19:23 12/15/2016 Estefanía Dougherty) (19:24 CHRISTIANOoardley R.N.) Demerol IV 50 mg (HIGH ALERT MEDICATION, NOW) (19:48 12/15/2016 Estefanía Dougherty) (Ack 19:49 JQuivey R.N.) (19:51 JQuivey R.N.) IV Lactated Ringers : initial bolus none -, then 125 mL/hr (NOW) (20:54 12/15/2016 Lilibeth Still written order Ana MELÉNDEZ) (20:56 Lilibeth Paez.N.) Metoclopramide IV 10 mg (NOW) (20:54 12/15/2016 Lilibeth Still written order Ana MELÉNDEZ) (20:57 Lilibeht Paez.N.) Famotidine IV 20 mg/50mL (NOW) (20:54 12/15/2016 Lilibeth Still written order Ana MELÉNDEZ) (20:57 Lilibeth Paez.Esteban.) Cefotetan IV 1 gm (NOW) (20:55 12/15/2016 Lilibeth Still written order Ana MELÉNDEZ) (20:59 Lilibeth Paez.Esteban.) ORDER SHEET NOTES: [Electronically signed by Tevin Hylton Dr. (20:45 12/15/2016)] [Electronically signed by Shaq Majano R.N. (21:49 12/15/2016)] [Electronically locked/signed by Shaq Majano R.N. (21:49 12/15/2016)]
--- NOTE | 2016-12-15 20:39 | ED NURSING NOTES ---
Clinical Report - Nurses [facility] [address] [place] [address] 12/15/2016 18:51 Patient: PAUL LUEVANO TRIAGE Triage time 19:10. Acuity: LEVEL 3. Chief Complaint: ABDOMINAL PAIN. 19:10 12/15/16. 19:12/15/16. Alert. No acute distress. --19:12 Alin Joseph R.N. 19:09 12/15/16. BP: 143/92. HR: 66. RR: 20. O2 saturation: 100% on room air. Temp: 98.2 F (oral). Pain level now: 08/17. --19:12 Alin Joseph R.N. Weight: 92.9 kg stated. Height/Length: 70 inches Per Patient. BMI: 29.4. --19:10 Alin Joseph R.N. Medications TraMADol HCl Oral, as needed, started 12/15/16. --19:12 Alin Joseph R.N. Medication/allergy information source: the patient. --19:12 Alin Joseph R.N. Allergies Doxycycline. --19:12 Alin Joseph R.N. History Arrived by private vehicle, and accompanied by family. Primary physician ([facility]). 19:10 12/15/16. This started today. He has had nausea. 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 PAST MEDICAL HX: Immunizations not up to date. SOCIAL HX: Never smoker. No alcohol use or drug use. No recent travel. No infectious disease exposure. No known contact with a sick individual. ABUSE ASSESSMENT: No report of abuse. FALL RISK ASSESSMENT: Fall risk assessment completed. No fall risk identified. NUTRITIONAL RISK ASSESSMENT: The nutritional risk assessment revealed no deficiencies. FUNCTIONAL ASSESSMENT: Functional assessment: no impairments noted. LEARNING NEEDS ASSESSMENT: The learning needs assessment revealed no barriers. SKIN INTEGRITY ASSESSMENT: Skin integrity risk assessment completed. No skin integrity risk identified. --19:12 Alin Joseph R.N. PROBLEMS: Gallbladder Disease. Chest Pain. --19:12 Alin Joseph R.N. ADDITIONAL SURGERIES: Knee Surgery. --19:12 Alin Joseph R.N. Assessment 19:12/15/16. --19:12 Alin Joseph R.N. Interventions 19:10 12/15/16. 19:12/15/16. ID and allergy band on patient. To treatment room. --19:12 Alin Joseph R.N. PHYSICAL ASSESSMENT 19:12/15/16. GENERAL / NEURO / PSYCH: Alert. Oriented X 4. Appears in pain. CVS: Capillary refill less than 2 seconds. SKIN: Skin is warm and dry. --19:12 Alin Joseph R.N. NURSING PROGRESS NOTES 19:12/15/16. The plan of care for this patient has been created. Patient gowned. Head of bed elevated. Reassurance given. Two patient identifiers checked. Call light placed in reach. Side rails up x 2. Brakes of bed on. Brakes of chair on. --19:12 Alin Joseph R.N. 19:12/15/16. Patient ready for evaluation- chart flagged and notification provided. --19:13 Alin Joseph R.N. 19:22 12/15/2016 Site #1 started via IV in the right antecubital space with an 20g angiocath, with aseptic technique and good blood return; one attempt. Blood drawn: rainbow set. Labeled in the presence of the patient. Saline lock flushed with 10 mL saline. --19:22 Alin Joseph R.N. 19:23 12/15/2016 Started bag #1 1000 mL IV Fluids IV NS (Saline); at 1000 mL/hr over 1 hour(s) via site #1. Allergies verified and confirmed 5 rights. IV patency established. IV site checked: no pain, redness, or swelling. IV flushed thoroughly pre- and post-medication administration. Completed per protocol. --19:23 Alin Joseph R.N. 19:24 12/15/2016 Zofran (Ondansetron HCl) IVP 4 mg given over 2 minute(s) via site #1. Allergies verified and confirmed 5 rights. IV patency established. IV site checked: no pain, redness, or swelling. IV flushed thoroughly pre- and post-medication administration. IVP given by RN. --19:24 Alin Joseph R.N. 19:26 12/15/2016 Demerol (Meperidine HCl) IVP 50 mg given over 2 minute(s) via site #1. Allergies verified and confirmed 5 rights. IV patency established. IV site checked: no pain, redness, or swelling. IV flushed thoroughly pre- and post-medication administration. IVP given by RN. --19:26 Alin Joseph R.N. 19:26 12/15/16. BP: 149/85. HR: 56. RR: 20. O2 saturation: 100% on room air. --19:26 Alin Joseph R.N. 19:26 12/15/16. --19:26 Alin Joseph R.N. Patient and family informed about reason for wait and about plan of care. --19:27 Alin Joseph R.N. 19:27 12/15/16. Patient waiting for lab results. --19:27 Alin Joseph R.N. 19:29. Care transferred and report received. --19:29 Shaq Majano R.N. 19:51 12/15/2016 Demerol (Meperidine HCl) IVP 50 mg given over 2 minute(s) via site #1. Allergies verified and confirmed 5 rights. IV patency established. IV site checked: no pain, redness, or swelling. IV flushed thoroughly pre- and post-medication administration. --19:51 Shaq Majano R.N. 20:40 12/15/2016 IV Fluids IV NS Discontinued: bag #1 infused. Total amount infused: 1000 mL. IV patency established. IV site checked: no pain, redness, or swelling. IV flushed thoroughly. --20:56 Shaq Majano R.N. <<STRICKEN ENTRY-- 20:50 12/15/2016 Started bag #1 1000 mL IV Fluids IV LACTATED RINGERS; at 125 mL/hr over 8 hour(s) via site #1 via IV pump. IV patency established. IV site checked: no pain, redness, or swelling. IV flushed thoroughly pre- and post-medication administration. --20:56 Shaq Majano R.N. --END STRIKE>> Correction. --21:26 Shaq Majano R.N. 20:50 12/15/2016 Started bag #2 1000 IV Fluids IV LACTATED RINGERS; at 125 mL/hr over 8 hour(s) via site #1 via IV pump. IV patency established. IV site checked: no pain, redness, or swelling. IV flushed thoroughly pre- and post-medication administration. --21:26 Shaq Majano R.N. 20:51 12/15/2016 Metoclopramide IVP 10 mg given over 2 minute(s) via site #1. Allergies verified and confirmed 5 rights. IV patency established. IV site checked: no pain, redness, or swelling. IV flushed thoroughly pre- and post-medication administration. --20:57 Shaq Majano R.N. 20:52 12/15/2016 Started 20 mg of Famotidine IVPB in bag #1 50 mL; at 200 mL/hr over 15 minute(s) via site #1; Allergies verified and confirmed 5 rights. IV patency established. IV site checked: no pain, redness, or swelling. IV flushed thoroughly pre- and post-medication administration. --20:57 Shaq Majano R.N. 20:59 12/15/2016 Started 1 gm of CEFOTETAN IVPB in bag #1 50 mL; at 180 mL/hr over 20 minute(s) via site #1 via IV pump. Allergies verified and confirmed 5 rights. IV patency established. IV site checked: no pain, redness, or swelling. IV flushed thoroughly pre- and post-medication administration. --20:59 Shaq Majano R.N. 21:08 12/15/2016 Famotidine IVPB Discontinued: bag #1 infused. Total amount infused: 50 mL. IV patency established. IV site checked: no pain, redness, or swelling. IV flushed thoroughly. --21:25 Shaq Majano R.N. 21:20 12/15/2016 CEFOTETAN IVPB Discontinued: bag #1 infused. Total amount infused: 50 mL. IV patency established. IV site checked: no pain, redness, or swelling. IV flushed thoroughly. --21:25 Shaq Majano R.N. 21:26 12/15/2016 IV Fluids IV LACTATED RINGERS Continued: upon admission at the rate of 125 mL/hr. 900 mL remaining bag #2. IV patency established. IV site checked: no pain, redness, or swelling. IV flushed thoroughly. --21:26 Shaq Majano R.N. DISPOSITION / DISCHARGE Condition at departure: stable. No learning barriers present. Admitted to Acute Care. Transported via stretcher by [employer] with IV. Patient's personal items include, Other belongings; items were placed in belongings bag and given to the spouse. He did not have glasses, contacts, dentures or a hearing aid. FALL RISK ASSESSMENT: Fall risk assessment completed. No fall risk identified. --21:15 Shaq Majano R.N. 21:15. Report was given. (Bert BRYANThome care manager). --21:15 Shaq Majano R.N. 21:27 12/15/16. BP: 129/79. HR: 60. RR: 16. O2 saturation: 97% on room air. Pain level now: 02/15. --21:28 Shaq Majano R.N. Departure time: 21:37. --21:37 Shaq Majano R.N. Locked/Released at 12/15/2016 21:49 by Shaq Majano R.N.
--- NOTE | 2016-12-15 20:39 | ED CLINICAL REPORT ---
Clinical Report - Physicians/Mid Levels [facility] [address] [place] [address] 12/15/2016 18:51 Patient: PAUL LUEVANO Time Seen: 19:04; initial patient contact. Arrived- By private vehicle. Historian- patient. HISTORY OF PRESENT ILLNESS Chief Complaint: ABDOMINAL PAIN. At its maximum, severity described as moderate. When seen in the E.D., severity described as moderate. Modifying factors. Not worsened by anything. Not relieved by anything. It is described as "pain" and cramping. No radiation. It is described as located in the right upper quadrant. This started today and is still present and worsening. The patient has had nausea, loss of appetite and vomiting. Similar symptoms previously: Once. Recent medical care: The patient was seen recently at this facility in the emergency department (Dx'd w/ symptomatic cholelithiasis. Pt sent in by surgeon due to pain.). REVIEW OF SYSTEMS No constipation, fever or chills. All systems otherwise negative, except as recorded above. PAST HISTORY Gallbladder Disease. Chest Pain. SURGERIES: Knee Surgery. SOCIAL HISTORY Never smoker. No alcohol use or drug use. ADDITIONAL NOTES The nursing notes have been reviewed with agreement regarding the chief complaint, PMH and patient medications and allergies. PHYSICAL EXAM Vital Signs: 12/15/2016 19:09 BP: 143/92. HR: 66. RR: 20. O2 saturation: 100%. Temp: 98.2 F. Pain level now: 10/10. Have been reviewed. Hypertensive. Heart rate normal. Respiratory rate normal. Temperature normal. Oxygen saturation normal. Appearance: Alert. Oriented X3. Appears to be in pain. Eyes: Eyes normal inspection. No scleral icterus. ENT: Dry mucous membranes present. CVS: Normal heart rate and rhythm. Heart sounds normal. Respiratory: No respiratory distress. Breath sounds normal. Abdomen: Soft. Moderate tenderness in the right upper quadrant with guarding present. Positive Penny's sign. No rebound tenderness. Bowel sounds normal. No mass. Skin: Skin warm and dry. Normal skin color. No rash. Extremities: No lower extremity edema. Neuro: Oriented X 3. LABS, X-RAYS, AND EKG Laboratory Tests: CBC w Diff: (ARISTEO: 12/15/2016 19:20) ( MsgRcvd 12/15/2016 19:35) Final results Test Result Flag Units (Reference) WHITE BLOOD COUNT 14.9 # H K/uL (4.5-11.5) RED BLOOD COUNT 5.33 M/uL (4.50-5.90) HEMOGLOBIN 15.3 gm/dL (13.5-17.5) HEMATOCRIT 45.6 % (41.0-53.0) MEAN CELL VOLUME 86 fL (80-100) MEAN CORPUSCULAR HGB 29 pg (26-34) MEAN CORPUSCULAR HGB CONC 34 g/dL (31-37) RED CELL DISTRIBUTION WIDTH 13.4 % (11.6-14.8) PLATELET COUNT 244 K/uL (150-400) NEUTROPHIL % 79.2 H % (50-75) LYMPH % 9.7 L % (25-40) MONO % 8.8 % (3-14) EOSINOPHIL % 1.6 % (0-4) BASOPHIL % 0.7 % (0-2) Lipase: (ARISTEO: 12/15/2016 19:20) ( MsgRcvd 12/15/2016 19:51) Final results Test Result Flag Units (Reference) GLUCOSE 135 H mg/dL (70-110) BUN 18 mg/dL (7-18) CREATININE 1.2 mg/dL (0.6-1.3) Estimated GFR >60 mL/min Estimated GFR- >60 mL/min Note: Persistent reduction over 3 months in eGFR<60 mL/min/1.73 m2 defines CKD. Patients with eGFR values>=60 mL/min/1.73 m2 may also have CKD if evidence ofpersistent proteinuria. Additional information may be foundat www.kidney.org. SODIUM 144 mmol/L (136-145) POTASSIUM 3.8 mmol/L (3.5-5.1) CHLORIDE 106 mmol/L (98-107) CARBON DIOXIDE 27 mmol/L (21-32) CALCIUM 9.2 mg/dL (8.5-10.1) TOTAL PROTEIN 7.1 g/dL (6.4-8.2) ALBUMIN 3.4 g/dL (3.3-5.0) BILIRUBIN, TOTAL 1.0 mg/dL (0.0-1.0) ALKALINE PHOSPHATASE 70 U/L (46-116) AST (SGOT) 14 L U/L (15-37) ALT (SGPT) 30 U/L (12-78) LIPASE 141 U/L (73-393) AMYLASE 45 U/L (25-115) . PROGRESS AND PROCEDURES Discussed case with health care provider (call returned 20:39 Dr. Amato. Admit and start monroe order set.). Disposition: Observation in Acute Care. Condition: good. CLINICAL IMPRESSION Cholelithiasis with acute cholecystitis. No obstruction. Biliary colic with multiple gallstones and acute cholecystitis. INSTRUCTIONS Follow-up: Screening today revealed the patient's blood pressure to be in the hypertensive range. The patient was admitted and blood pressure will be managed during the admission. (Electronically signed by Tevin Hylton Dr. 12/15/2016 20:45)
--- NOTE | 2016-12-15 20:39 | ED ORDER SUMMARY ---
..... Patient: PAUL LUEVANO OrderSheet [facility] VisitID: [id number] [place] [address] 51y, M Registration Date/Time: 12/15/2016 ORDER SHEET Weight: 92.9 kg (stated) Allergies: Doxycycline GENERAL ORDERS: CBC w Diff Urgent (19:05 12/15/2016 Estefanía Dougherty) (Ack 19:09 TNouse ER Tech1) (19:22 JBoardley R.N.) CMP Urgent (19:05 12/15/2016 Estefanía Dougherty) (Ack 19:09 NHouse ER Tech1) (19:22 JBoardley R.N.) Amylase Urgent (19:05 12/15/2016 Estefanía Dougherty) (Ack 19:09 NHouse ER Tech1) (19:22 JBoardley R.N.) Lipase Urgent (19:12/15/2016 Estefanía Dougherty) (Ack 19:09 NHouse ER Tech1) (19:22 JBoardley R.N.) MEDICATION ORDERS: IV FLUIDS: IV NS : initial bolus none -, then 1000 mL/hr for X1 (NOW) (19:04 12/15/2016 Estefanía Dougherty) (Ack 19:13 JBoardley R.N.) (19:23 JBoardley R.N.) Demerol IV 50 mg (HIGH ALERT MEDICATION, NOW) (19:23 12/15/2016 Estefanía Dougherty) (Ack 19:24 JBoardley R.N.) (19:26 JBoardley R.N.) Zofran IV 4 mg (NOW) (19:23 12/15/2016 Estefanía Dougherty) (19:24 CHRISTIANOoardley R.N.) Demerol IV 50 mg (HIGH ALERT MEDICATION, NOW) (19:48 12/15/2016 Estefanía Dougherty) (Ack 19:49 JQuivey R.N.) (19:51 JQuivey R.N.) IV Lactated Ringers : initial bolus none -, then 125 mL/hr (NOW) (20:54 12/15/2016 Lilibeth Still written order Ana MELÉNDEZ) (20:56 Lilibeth Paez.N.) Metoclopramide IV 10 mg (NOW) (20:54 12/15/2016 Lilibeth Still written order Ana MELÉNDEZ) (20:57 Lilibeth Paez.N.) Famotidine IV 20 mg/50mL (NOW) (20:54 12/15/2016 Lilibeth Still written order Ana MELÉNDEZ) (20:57 Lilibeth Paez.Esteban.) Cefotetan IV 1 gm (NOW) (20:55 12/15/2016 Lilibeth Still written order Ana MELÉNDEZ) (20:59 Lilibeth Paez.Esteban.) ORDER SHEET NOTES: [Electronically signed by Tevin Hylton Dr. (20:45 12/15/2016)] [Electronically signed by Shaq Majano R.N. (21:49 12/15/2016)] [Electronically locked/signed by Shaq Majano R.N. (21:49 12/15/2016)]
[2016-12-15 21:47] VITALS: BP 121/80
--- NOTE | 2016-12-15 21:49 | ED DISCHARGE INSTRUCTIONS ---
Patient: PAUL LUEVANO General Instructions [facility] VisitID: [id number] [address] [place] [place] [address] 51y, M Registration Date/Time: 12/15/2016 Cholelithiasis with acute cholecystitis. No obstruction. Biliary colic with multiple gallstones and acute cholecystitis. INSTRUCTIONS Follow-up: Screening today revealed the patient's blood pressure to be in the hypertensive range. The patient was admitted and blood pressure will be managed during the admission. (Electronically signed by Tevin Hylton Dr. 12/15/2016 20:45)
--- NOTE | 2016-12-15 21:49 | ED MAR SUMMARY ---
..... Medication Administration Record [facility] [address] [place] [address] Patient: PAUL LUEVANO Visit ID: [id number] 51y, M Weight: 92.9 kg Height/Length: 70 in BMI: 29.4 ALLERGIES: Doxycycline Start 19:23 12/15/2016 Alin Joseph R.N., Stop 20:40 12/15/2016 Shaq Majano R.N. Medication Administered: IV NS (SALINE), Dose: IV Fluids over 1 hour(s), Rate: 1000 mL/hr, Dispensed: 1000 mL bag, Site: #1 right AC. Medication Ordered: IV NS : initial bolus none -, then 1000 mL/hr for X1 (NOW). Given 19:24 12/15/2016 Alin Joseph R.N. Medication Administered: ZOFRAN [IVP] (ONDANSETRON HCL), Dose: 4 mg IVP over 2 minute(s), Site: #1 right AC. Medication Ordered: Zofran IV 4 mg (NOW). Given 19:26 12/15/2016 Alin Joseph R.N. Medication Administered: DEMEROL [IVP] (MEPERIDINE HCL), Dose: 50 mg IVP over 2 minute(s), Site: #1 right AC. Medication Ordered: Demerol IV 50 mg (HIGH ALERT MEDICATION, NOW). Given 19:51 12/15/2016 Shaq Majano R.N. Medication Administered: DEMEROL [IVP] (MEPERIDINE HCL), Dose: 50 mg IVP over 2 minute(s), Site: #1 right AC. Medication Ordered: Demerol IV 50 mg (HIGH ALERT MEDICATION, NOW). Start 20:50 12/15/2016 Shaq Majano R.N., Continued Upon Admission 21:26 12/15/2016 Shaq Majano R.N. Medication Administered: IV LACTATED RINGERS, Dose: IV Fluids over 8 hour(s), Rate: 125 mL/hr, Dispensed: 1000 mL bag, Site: #1 right AC. Medication Ordered: IV Lactated Ringers : initial bolus none -, then 125 mL/hr (NOW). Given 20:51 12/15/2016 Shaq Maajno R.N. Medication Administered: METOCLOPRAMIDE [IVP], Dose: 10 mg IVP over 2 minute(s), Site: #1 right AC. Medication Ordered: Metoclopramide IV 10 mg (NOW). Start 20:52 12/15/2016 Shaq Majano R.N., Stop 21:08 12/15/2016 Shaq Majano RMinooN. Medication Administered: FAMOTIDINE [IVPB], Dose: 20 mg IVPB over 15 minute(s), Rate: 200 mL/hr, Dispensed: 50 mL bag, Site: #1 right AC. Medication Ordered: Famotidine IV 20 mg/50mL (NOW). Start 20:59 12/15/2016 Shaq Majano, R.N., Stop 21:20 12/15/2016 Shaq Majano, R.N. Medication Administered: CEFOTETAN [IVPB], Dose: 1 gm IVPB over 20 minute(s), Rate: 180 mL/hr, Dispensed: 50 mL bag, Site: #1 right AC. Medication Ordered: Cefotetan IV 1 gm (NOW).
--- NOTE | 2016-12-15 21:49 | ED MED RECONCILIATION SUMMARY ---
Patient: PAUL LUEVANO Medication Reconciliation Report [facility] VisitID: [id number] [address] [place] [address] 51y, M Registration Date/Time: 12/15/2016 Weight: 92.9 kg Height/Length: 70 in. BMI: 29.4 ALLERGIES: Doxycycline The patient's Home Medications are listed below: THE FOLLOWING MEDICATIONS NEED TO BE RECONCILED: TraMADol HCl Oral The source(s) of the original Home Medication information: patient The following Medications were given to the patient in the Emergency Department: IV NS IV Fluids bolus 0, then 1000 mL/hr, administered: 12/15/2016 7:23:00 PM Zofran [IVP] IVP 4 mg, administered: 12/15/2016 7:24:00 PM Demerol [IVP] IVP 50 mg, administered: 12/15/2016 7:26:00 PM Demerol [IVP] IVP 50 mg, administered: 12/15/2016 7:51:00 PM IV LACTATED RINGERS IV Fluids bolus 0, then 125 mL/hr, administered: 12/15/2016 8:50:00 PM Metoclopramide [IVP] IVP 10 mg, administered: 12/15/2016 8:51:00 PM Famotidine [IVPB] IVPB bolus 0, then 20 mg 200 mL/hr, administered: 12/15/2016 8:52:00 PM CEFOTETAN [IVPB] IVPB bolus 0, then 1 gm 180 mL/hr, administered: 12/15/2016 8:59:00 PM The following Medications were prescribed to the patient: None.
--- NOTE | 2016-12-15 21:49 | ED MAR SUMMARY ---
..... Medication Administration Record [facility] [address] [place] [address] Patient: PAUL LUEVANO Visit ID: [id number] 51y, M Weight: 92.9 kg Height/Length: 70 in BMI: 29.4 ALLERGIES: Doxycycline Start 19:23 12/15/2016 Alin Joseph R.N., Stop 20:40 12/15/2016 Shaq Majano R.N. Medication Administered: IV NS (SALINE), Dose: IV Fluids over 1 hour(s), Rate: 1000 mL/hr, Dispensed: 1000 mL bag, Site: #1 right AC. Medication Ordered: IV NS : initial bolus none -, then 1000 mL/hr for X1 (NOW). Given 19:24 12/15/2016 Alin Joseph R.N. Medication Administered: ZOFRAN [IVP] (ONDANSETRON HCL), Dose: 4 mg IVP over 2 minute(s), Site: #1 right AC. Medication Ordered: Zofran IV 4 mg (NOW). Given 19:26 12/15/2016 Alin Joseph R.N. Medication Administered: DEMEROL [IVP] (MEPERIDINE HCL), Dose: 50 mg IVP over 2 minute(s), Site: #1 right AC. Medication Ordered: Demerol IV 50 mg (HIGH ALERT MEDICATION, NOW). Given 19:51 12/15/2016 Shaq Majano R.N. Medication Administered: DEMEROL [IVP] (MEPERIDINE HCL), Dose: 50 mg IVP over 2 minute(s), Site: #1 right AC. Medication Ordered: Demerol IV 50 mg (HIGH ALERT MEDICATION, NOW). Start 20:50 12/15/2016 Shaq Majano R.N., Continued Upon Admission 21:26 12/15/2016 Shaq Majano R.N. Medication Administered: IV LACTATED RINGERS, Dose: IV Fluids over 8 hour(s), Rate: 125 mL/hr, Dispensed: 1000 mL bag, Site: #1 right AC. Medication Ordered: IV Lactated Ringers : initial bolus none -, then 125 mL/hr (NOW). Given 20:51 12/15/2016 Shaq Majano R.N. Medication Administered: METOCLOPRAMIDE [IVP], Dose: 10 mg IVP over 2 minute(s), Site: #1 right AC. Medication Ordered: Metoclopramide IV 10 mg (NOW). Start 20:52 12/15/2016 Shaq Majano R.N., Stop 21:08 12/15/2016 Shaq Majano RMinooN. Medication Administered: FAMOTIDINE [IVPB], Dose: 20 mg IVPB over 15 minute(s), Rate: 200 mL/hr, Dispensed: 50 mL bag, Site: #1 right AC. Medication Ordered: Famotidine IV 20 mg/50mL (NOW). Start 20:59 12/15/2016 Shaq Majano, R.N., Stop 21:20 12/15/2016 Shaq Majano, R.N. Medication Administered: CEFOTETAN [IVPB], Dose: 1 gm IVPB over 20 minute(s), Rate: 180 mL/hr, Dispensed: 50 mL bag, Site: #1 right AC. Medication Ordered: Cefotetan IV 1 gm (NOW).
--- NOTE | 2016-12-15 21:49 | ED DISCHARGE INSTRUCTIONS ---
Patient: PAUL LUEVANO General Instructions [facility] VisitID: [id number] [address] [place] [address] 51y, M Registration Date/Time: 12/15/2016 Cholelithiasis with acute cholecystitis. No obstruction. Biliary colic with multiple gallstones and acute cholecystitis. INSTRUCTIONS Follow-up: Screening today revealed the patient's blood pressure to be in the hypertensive range. The patient was admitted and blood pressure will be managed during the admission. (Electronically signed by Tevin Hylton Dr. 12/15/2016 20:45)
--- NOTE | 2016-12-15 21:49 | ED MED RECONCILIATION SUMMARY ---
Patient: PAUL LUEVANO Medication Reconciliation Report [facility] VisitID: [id number] [address] [place] [address] 51y, M Registration Date/Time: 12/15/2016 Weight: 92.9 kg Height/Length: 70 in. BMI: 29.4 ALLERGIES: Doxycycline The patient's Home Medications are listed below: THE FOLLOWING MEDICATIONS NEED TO BE RECONCILED: TraMADol HCl Oral The source(s) of the original Home Medication information: patient The following Medications were given to the patient in the Emergency Department: IV NS IV Fluids bolus 0, then 1000 mL/hr, administered: 12/15/2016 7:23:00 PM Zofran [IVP] IVP 4 mg, administered: 12/15/2016 7:24:00 PM Demerol [IVP] IVP 50 mg, administered: 12/15/2016 7:26:00 PM Demerol [IVP] IVP 50 mg, administered: 12/15/2016 7:51:00 PM IV LACTATED RINGERS IV Fluids bolus 0, then 125 mL/hr, administered: 12/15/2016 8:50:00 PM Metoclopramide [IVP] IVP 10 mg, administered: 12/15/2016 8:51:00 PM Famotidine [IVPB] IVPB bolus 0, then 20 mg 200 mL/hr, administered: 12/15/2016 8:52:00 PM CEFOTETAN [IVPB] IVPB bolus 0, then 1 gm 180 mL/hr, administered: 12/15/2016 8:59:00 PM The following Medications were prescribed to the patient: None.
[2016-12-15 22:51] VITALS: BP 125/77
[2016-12-15] MEDS ORDERED: TRAMADOL HCL50 MG PO (22:52)
[2016-12-16] VITALS (11 sets, daily range): BP systolic 107–125; BP diastolic 71–81
--- NOTE | 2016-12-16 17:38 | DIAGNOSTIC IMAGING REPORT ---
PROCEDURE: XR INTRAOPERATIVE LAP LYLY INDICATION: IOC TECHNIQUE: Intraoperative fluoroscopy provided for Dr. Amato performing an intraoperative cholangiogram following cholecystectomy. Total fluoroscopy time 0.13 minutes Cumulative dose 5.8 mGy. COMPARISON: Abdominal ultrasound 12/13/2016 FINDINGS: One intraoperative fluoroscopic spot image of the right upper quadrant of the abdomen demonstrates cannulation of the cystic duct stump and opacification of the intrahepatic and extrahepatic biliary tree. There are no filling defects. There is normal passage of contrast into the duodenum. IMPRESSION: 1. Negative intraoperative cholangiogram.
[2016-12-16] MEDS ORDERED: NORCO1 TA1 PO (18:12)
--- NOTE | 2016-12-16 18:13 | Provider's Discharge Care Plan ---
Problem, Goal, Plan Problem List 1. Cholelithiasis with cholecystitis without obstruction
--- NOTE | 2016-12-16 18:13 | Provider's Discharge Care Plan ---
Problem, Goal, Plan Problem List 1. Cholelithiasis with cholecystitis without obstruction
--- NOTE | 2016-12-16 18:47 | CONSULTATION REPORT ---
DATE OF CONSULTATION: 12/16/2016 CHIEF COMPLAINT: 1. Right upper quadrant abdominal pain HISTORY OF PRESENT ILLNESS: The patient is a 51-year-old man who presented to the emergency department with an episode of severe and persistent right upper quadrant abdominal pain. This patient reported that he had pain in the same location about 3 days ago starting about 0400 on Wednesday, which improved after he was given some medication. Shortly after this; however, the pain recurred and got worse. He had nausea, but no vomiting. He had shorter episodes of similar pain going back about a year. The patient felt alright 2 days ago when he woke up but the pain then recurred which caused the present admission. There is no previous history of jaundice or pancreatitis. MEDICAL/SURGICAL HISTORY: Medical history is unremarkable. Past surgical history : Left knee meniscus arthroscopic surgery and colonoscopy about 1 year ago. MEDICATIONS: 1. None. ALLERGIES: 1. DOXYCYCLINE CAUSING NAUSEA. SOCIAL HISTORY: The patient is . 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 He does not smoke cigarettes. He takes occasional social alcohol. FAMILY HISTORY: He had an uncle with atherosclerotic cardiovascular disease and his father had colon cancer and lymph node involvement. REVIEW OF SYSTEMS: A 12-point review of systems was obtained. The patient reports occasional sinus problems. All other systems were covered, including head and neck and sinuses, eyes, ears, nose and throat, neck problems, thyroid problems and endocrine problems. He has had no shortness of breath, productive cough, hemoptysis. He has had no chest pain or palpitations. He has had abdominal pain as described, he denies any diarrhea, hematochezia, or hematemesis. His extremities have demonstrated no acute problems with disabilities. His mental capacities are normal and unaltered. PHYSICAL EXAMINATION: VITAL SIGNS: His initial vital signs were blood pressure 143/92, heart rate of 66, respirations 20, O2 saturation 100%, and temperature 98.2. GENERAL: The patient is alert and cooperative. HEENT: Ears and nose without gross external lesions. Eyes are equal. There is no icterus. NECK: Without palpable masses or thyromegaly. There is no bruit. CHEST: Clear to auscultation. HEART: Regular, without murmur or gallop. ABDOMEN: Reveals localized tenderness and guarding in the right upper quadrant with a positive Penny's sign. Bowel sounds are active. Abdomen is nondistended. There is no obvious hepatosplenomegaly. NEUROLOGIC: His mental status is normal, and cranial nerves function normally, his extremities all move symmetrically. LAB/IMAGING: The ultrasound of the gallbladder was reviewed and this demonstrates evidence of acute cholecystitis. White blood count is 14.9, hemoglobin and hematocrit 15 and 45. Electrolytes are all normal. His bilirubin is normal. His lipase and amylase were also normal. IMPRESSION: 1. Acute cholecystitis. PLAN: I recommend the patient undergo a laparoscopic cholecystectomy with cholangiography. I explained to him the nature of this operation as well as potential alternatives, benefits and risks. Risks discussed included infection, bleeding, scars, pain, damage to local structures, possible common duct stones and pancreatitis. He is made aware of these and other risks and would like to proceed with surgery as described to him.
--- NOTE | 2016-12-16 18:51 | OPERATIVE REPORT ---
DATE OF SURGERY: 12/16/2016 SURGEON: Lucas Wakefield MD PREOPERATIVE DIAGNOSIS: 1. Acute cholecystitis POSTOPERATIVE DIAGNOSIS: 1. Acute cholecystitis PROCEDURE PERFORMED: 1. Laparoscopic cholecystectomy and cholangiography ANESTHESIA: General. INDICATIONS: The patient is a 51-year-old man presenting with persistent right upper quadrant abdominal pain and leukocytosis with cholelithiasis on ultrasound. SURGICAL TECHNIQUE: The patient was taken to the operating room, where a general anesthetic was administered and the patient prepped and draped in the usual sterile fashion. A local anesthetic of 0.5% Marcaine with epinephrine was used at each incision site. The patient received intravenous antibiotics and an orogastric tube, and sequential compression devices. An intraumbilical incision was made and a Veress needle was used to insufflate the abdominal cavity. A 10 mm cannula was passed and visualization obtained. This demonstrated a red acutely distended gallbladder with omentum stuck to the front wall. Three additional cannulae were placed in the usual locations. The omentum was dissected off the front wall of the gallbladder using blunt and electrocautery dissection. The gallbladder was difficult to elevate. Therefore, it was decompressed with an Angiocath. Following this, it was more pliable and could be grasped. It was pulled up into view and the dissection swept around the Chidi's pouch region. The cystic duct and cystic artery were isolated at the neck of the gallbladder. The cystic artery was divided after being clipped twice. This allowed full access to the cystic duct, which was dissected onto the neck of the gallbladder. A clip was placed at this location and a fluoroscopic cholangiogram carried out. This demonstrated free flow into the duodenum and no filling defects in the common ductal system. The cystic duct was doubly clipped and divided. The gallbladder stripped from the gallbladder fossa using electrocautery. The gallbladder was placed in a specimen bag and pulled through the upper trocar site where it was morcellated and extracted in pieces, along with a great deal of stone material. After extraction of the gallbladder, the operative site was irrigated and found to be hemostatic and clean with no evidence of bile leakage. All fluid was evacuated. Additional Marcaine was instilled, gas was evacuated, and the skin sites at the midline closed with interrupted subcuticular 4-0 Vicryl suture. Steri-Strips and dressings were placed at all sites. The patient left in good condition. No intraoperative complications were encountered.
== END 2016-12-16 21:30 | disposition home or self-care (01) ==
LOC: ED SRH 18:50 → TRANS SRH 20:36 → ACUTE2 SRH 20:36
PROVIDERS: ADMIT Surgery
PROC: BF101ZZ Fluoroscopy of Bile Ducts using Low Osmolar Contrast (ICD-10-PCS; principal; 2016-12-16 16:00)
PROC: 0FT44ZZ Resection of Gallbladder, Percutaneous Endoscopic Approach (ICD-10-PCS; principal; 2016-12-16 16:00)
DX: K80.00 Calculus of gallbladder with acute cholecystitis without obstruction (principal); R11.0 Nausea
CPT/HCPCS: 29229; 29230; 29257; 29264; 50002; 60001; 70002; 80102; 80248; 82794; 82807; 83338; 83339; 83348; 83587; 83919; 83920; 83937; 83982; 84038; 90074; 90100; 92235; 92520; 92530; 92540; 95059